=== PATIENT | male | born 1950 | race Caucasian/White ===

== ENCOUNTER → 2020-01-03 | Outpatient (CLI) | payer OTHER | LOC: LAB 14:24 | PROVIDERS: ATTEND Orthopaedic Surgery | DX: Z51.81 Encounter for therapeutic drug level monitoring (principal); Z79.01 Long term (current) use of anticoagulants; Z96.698 Presence of other orthopedic joint implants | CPT/HCPCS: 36415; 85610 ==

== ENCOUNTER → 2020-01-08 | Outpatient (CLI) | payer MEDICARE | LOC: LAB 14:03 | PROVIDERS: ATTEND Orthopaedic Surgery | DX: Z79.01 Long term (current) use of anticoagulants (principal) | CPT/HCPCS: 36415; 85610 ==

== ENCOUNTER → 2020-01-15 | Outpatient (CLI) | payer MEDICARE | LOC: LAB 13:56 | PROVIDERS: ATTEND Orthopaedic Surgery | DX: Z79.01 Long term (current) use of anticoagulants (principal) | CPT/HCPCS: 36415; 85610 ==

== ENCOUNTER → 2020-01-23 | Outpatient (CLI) | payer MEDICARE, OTHER ==
--- NOTE | 2020-01-23 14:47 | CARD ---
MR#: [id number] Date of Study: 01/23/2020 Ordering Physician: KELLI ROD, Referring Physician: KELLI ROD, Tech: Nori Mahmood APPROVED REPORT EXAM: Two-dimensional and M-mode echocardiogram with Doppler and color Doppler. Other Information Quality : AverageHR: 55bpm INDICATION Atrial Fibrillation 2D DIMENSIONS RVDd2.6 (2.9-3.5cm)Left Atrium(2D)2.9 (1.6-4.0cm) IVSd1.2 (0.7-1.1cm)Aortic Root(2D)3.3 (2.0-3.7cm) LVDd4.9 (3.9-5.9cm)LVOT Diameter2.1 (1.8-2.4cm) PWd1.1 (0.7-1.1cm)LVDs4.1 (2.5-4.0cm) FS (%) 16.3 %SV39.0 ml LVEF(%)34.2 (>50%) Aortic Valve AoV Peak Sg.114.0cm/sAoV VTI22.8cm AO Peak GR.5.2mmHgLVOT Peak Sg.93.9cm/s LVOT VTI 19.36cmAO Mean GR.3mmHg HENRI (VMAX)2.41cx8XDM (VTI)2.94cm2 Mitral Valve MV E Iwckyyfh38.0cm/sMV DECEL CKLK171nd MV A Wkiuykqw45.0cm/sE/A Ratio0.9 Pulmonary Valve PV Peak Exzzvjqi09.1cm/sPV Peak Grad.3mmHg Tricuspid Valve TR P. Xwecnsro478bo/sRAP UZZNWBMH5uuUp TR Peak Gr.00agYkQZVP08whGk Pulmonary Vein S1 Hdhlfmta59.8cm/sD2 Ojiqmlxa85.7cm/s LEFT VENTRICLE The left ventricle is normal size. There is mild to moderate concentric left ventricular hypertrophy. The left ventricular systolic function is normal. The ejection fraction is estimated at 55-60%. Ther e is normal LV segmental wall motion. Transmitral Doppler flow pattern is Grade I-abnormal relaxation pattern. RIGHT VENTRICLE The right ventricle is normal size. There is normal right ventricular wall thickness. The right ventr icular systolic function is normal. ATRIA The left atrium size is normal. The right atrium is borderline dilated. Interatrial septum not well v isualized. AORTIC VALVE The aortic valve is normal in structure and function. Doppler and Color Flow revealed no significant aortic regurgitation. There is no significant aortic valvular stenosis. Calculated aortic valve area is 2.9 cm2 with maximum pressure gradient of 5 mmHg and mean pressure gradient of 3 mmHg. MITRAL VALVE The mitral valve is normal in structure and function. There is no evidence of mitral valve prolapse. There is no mitral valve stenosis. Doppler and Color Flow revealed no mitral valve regurgitation note d. TRICUSPID VALVE The tricuspid valve is normal in structure and function. Doppler and Color Flow revealed trace tricus pid regurgitation with an estimated PAP of 28 mmHg. There is no tricuspid valve stenosis. PULMONIC VALVE The pulmonic valve is not well visualized. Doppler and Color Flow revealed trace pulmonic valvular re gurgitation. GREAT VESSELS The aortic root is normal in size. The ascending aorta is normal in size. The IVC is normal in size a nd collapses >50% with inspiration. PERICARDIAL EFFUSION There is no evidence of significant pericardial effusion. Critical Notification Critical Value: No <Conclusion> The left ventricular systolic function is normal. The ejection fraction is estimated at 55-60%. There is normal LV segmental wall motion. Transmitral Doppler flow pattern is Grade I-abnormal relaxation pattern. Trace tricuspid regurgitation with an estimated PAP of 28 mmHg. There is no evidence of significant pericardial effusion. Signed by : David Caban, Electronically Approved : 01/23/2020 14:46:28
== END ==
LOC: ECHO 10:47
PROVIDERS: ATTEND Internal Medicine Cardiovascular Disease
DX: I51.7 Cardiomegaly (principal); I48.0 Paroxysmal atrial fibrillation
CPT/HCPCS: 93306

== ENCOUNTER 2021-05-03 08:01 | Emergency (ER) | payer MEDICARE ==
[~2021-05-03] VITALS: Ht 180.3 cm; Wt 109.7 kg
[~2021-05-03 08:01] MED LIST: ASPI-630 PO; AZIT250T PO; CEFD300C PO; DEXA6TAB6 PO; DILT240C33 PO; DULO60CA7 PO; FOLI0.4T5 PO; GABA600T7 PO; METH2.5T PO; PANT40TA3 PO; PRED2.5T PO; TAMS0.4C97 PO; TOFA5TAB PO
--- NOTE | 2021-05-03 08:34 | PHYS DOC ---
Past History Past Surgical History: Knee Replacement Additional Past Surgical Histo: CARDIAC CATH, IRON PLUG IN HEART Alcohol Use: None General Adult EDM: Chief Complaint: GENERALIZED BODY ACHES HPI: HPI: Patient is a 70-year-old male dropped off by for multiple complaints. Patient is a poor historian but is complaining of pain all over and weakness. Patient states that the pain is chronic and took a hydrocodone this morning that has since "worn off". Patient states he chronically has low back pain and has been getting injections, missed his last one due to being hospitalized for Covid, and has another one scheduled in 1 week. Patient was in [place] yesterday and by himself in a hotel room. He states that he was unable to call the front office spec anyone to call 911 because he was unable to get out of bed. Patient states and himself flew back into town, and he just arrived this morning. Patient states he normally has low back pain but is now complaining of pain in his upper back and neck since yesterday. He says he saw his primary care provider 2 days ago and was told he to start physical therapy for his weakness that has had since his hospitalization. Patient states he has had occasional chills and nonproductive cough since his illness, also has mouth sores that started when he had COVID but they are getting better. Patient denies any fevers, nausea, vomiting, diarrhea, hematuria or dysuria. Patient denies any urinary retention. Per she apparently emergency department because is unable to ambulate. Says is gotten severely worse over the past couple days and seeing his primary care provider. States he is unable to get up to use the restroom or care for himself. She is also concerned that he has been exhibiting signs of depression for the past couple months. Review of Systems: Review of Systems: All other systems within normal limits except for as noted in the HPI Allergies: Allergies: Allergies Coded Allergies Type Severity Reaction Last Updated Verified ibuprofen Allergy Severe 05/03/21 Yes Physical Exam: PE: Constitutional: Well developed, well nourished, no acute distress, non-toxic appearance. [] HENT: Normocephalic, atraumatic, bilateral external ears normal, nose normal. [] Eyes: PERRLA, conjunctiva normal, no discharge. [] Neck: No rigidity, supple, no stridor. [] Cardiovascular: Regular rate and rhythm, brisk cap refill [] Lungs & Thorax: Non labored symmetric respirations, no tachypnea or respiratory distress [] Abdomen: Soft, nondistended. Skin: Warm, dry, no erythema, no rash. [] Back: Unremarkable Extremities: No deformities, range of motion grossly intact, no lower extremity edema [] Neurologic: Alert and oriented X 3, no focal deficits noted. [] Psychologic: Affect normal, judgement normal, mood normal. [] EKG: EKG: [] Sinus rhythm, heart rate 90 bpm, left axis deviation, normal intervals, no ectopy, no STEMI Radiology/Procedures: Radiology/Procedures: [][place] [address] IMAGING REPORT Signed PATIENT: GERA JANE ACCOUNT: [id number] : 1950 LOCATION: ER AGE: 70 SEX: M EXAM STATUS: REG ER ORD. PHYSICIAN: MARÍA AMBRIZ MD REASON: back pain OMNI 350 100CC PROCEDURE: CT ANGIO CHEST ABD PELVIS EXAMINATION: CTA CHEST_ABDOMEN_AND PELVIS CLINICAL HISTORY: Back pain. Chest/abdominal pain. History of recent bilateral pulmonary emboli. Technique: Spiral CT acquisition of the chest, abdomen, and pelvis following IV contrast with coronal and sagittal reformatted images also provided for review. 3D maximum intensity projection images also performed. CT Dose Reduction Employed: One or more of the following individualized dose reduction techniques were utilized for this examination: 1. Automated exposure control 2. Adjustment of the mA and/or kV according to patient size 3. Use of iterative reconstruction technique. COMPARISON: CTA chest 04/20/2021 FINDINGS: CHEST: Mild residual thrombus involving a proximal segmental branch of the left upper lobe pulmonary arterial system. No evidence of additional residual emboli. Mild scattered subsegmental atelectasis and/or scarring bilaterally. Small residual irregular opacities remain in the left lung base at site of previously reported nodules, much less pronounced compared to prior study. No pleural effusion. Central airways patent. Visualized thyroid gland within normal limits. No mediastinal, hilar, or axillary lymphadenopathy. Cardiac chambers normal in size. Postoperative changes near the interatrial septum. No pericardial effusion. Mild atherosclerotic ossification in the thoracic aorta without aneurysm or dissection. No coronary artery atherosclerotic calcifications are noted, although the study is not optimized for coronary assessment. No evidence of acute osseous abnormality. Multilevel degenerative changes in the thoracic spine. ABDOMEN/PELVIS: Diffuse hypoattenuation of the hepatic parenchyma, compatible with steatosis. Gallbladder, pancreas, spleen, and adrenal glands unremarkable. Several hypoenhancing lesions in the right kidney measuring up to 2.5 cm, incompletely evaluated but may represent cysts. Left kidney unremarkable. Mildly filled urinary bladder. Nonenlarged prostate. No bowel dilation or definite wall thickening. Appendix within normal limits. Moderate hiatal hernia. Mild arterial atherosclerotic calcification. No abdominal aortic aneurysm or dissection. The celiac artery, superior and inferior mesenteric arteries, and bilateral renal arteries patent with no evidence of high-grade stenosis. No evidence of acute osseous abnormality. Multilevel degenerative changes in the lumbar spine. IMPRESSION: CHEST: Mild residual pulmonary arterial thrombus in a proximal segmental branch of the left upper lobe. Resolving left basilar opacities with mild scattered subsegmental atelectasis and/or scarring bilaterally. ABDOMEN/PELVIS: No evidence of acute abdominopelvic abnormality. Multiple nonacute findings as described. Electronically signed by: Steve Fermin DO (05/03/2021 11:20 AM) [facility] DICTATED AND SIGNED BY: STEVE FERMIN DO DATE: 05/03/21 105 CC: EBEN PALOMO; MARÍA AMBRIZ MD ~MTH0 0 [place] [address] IMAGING REPORT Signed PATIENT: GERA JANE ACCOUNT: [id number] : 1950 LOCATION: ER AGE: 70 SEX: M EXAM STATUS: REG ER ORD. PHYSICIAN: MARÍA AMBRIZ MD REASON: back of head and neck pain PROCEDURE: CT HEAD AND CERVICAL SPINE WO EXAMINATION: CT HEAD AND C-SPINE WO CLINICAL HISTORY: Back of head and neck pain. TECHNIQUE: Serial axial images without IV contrast were obtained from the vertex to the foramen magnum. Artificial intelligence software analysis also performed utilizing [employer]. CT of the cervical spine without IV contrast. Spiral, high resolution axial images were obtained from the skull base to the cervicothoracic junction with sagittal and coronal planar reconstructions. CT Dose Reduction Employed: One or more of the following individualized dose reduction techniques were utilized for this examination: 1. Automated exposure control 2. Adjustment of the mA and/or kV according to patient size 3. Use of iterative reconstruction technique. COMPARISON: None FINDINGS: BRAIN: Acute Change: No evidence of an acute contusion or other acute parenchymal process. Hemorrhage: No evidence of acute intracranial hemorrhage. Mass Lesion/Mass Effect: No evidence of intracranial mass or extraaxial fluid collection. No significant mass effect. Chronic Change: Scattered patchy foci of hypoattenuation in the supratentorial white matter, nonspecific but likely represents mild microvascular ischemia. Atherosclerotic calcification of the intracranial portion of the bilateral internal carotid arteries. Parenchyma: Mild generalized volume loss. Ventricles: Ventricles within normal limits for age. Paranasal Sinuses and Skull Base: Visualized paranasal sinuses clear. No evidence of acute calvarial fracture. C-SPINE: Alignment: Normal anatomic alignment. Osseous Structures: No evidence of acute fracture. Remote ununited fracture in the distal left C3 inferior articular process. Mild posterior subluxation of C4 relative to C3 and C5, likely degenerative. Degenerative Changes: Multilevel degenerative disc disease and neural foraminal narrowing, greatest at C4-5. No evidence of high-grade osseous spinal stenosis. Multilevel facet arthropathy. Cervical Soft Tissues: No prevertebral soft tissue swelling. Vascular calcifications. IMPRESSION: BRAIN: No evidence of acute intracranial abnormality. C-SPINE: No evidence of acute osseous abnormality involving the cervical spine. Multilevel degenerative findings as described, greatest at C4-5. Electronically signed by: Steve Fermin DO (05/03/2021 10:54 AM) [facility] DI[facility]ATED AND SIGNED BY: STEVE FERMIN DO DATE: 05/03/21 1045 CC: EBEN PALOMO; MARÍA AMBRIZ MD ~MTH0 0 Heart Score: C/O Chest Pain: No Risk Factors: Risk Factors: DM, Current or recent (<one month) smoker, HTN, HLP, family history of CAD, obesity. Risk Scores: Score 0 - 3: 2.5% MACE over next 6 weeks - Discharge Home Score 4 - 6: 20.3% MACE over next 6 weeks - Admit for Clinical Observation Score 7 - 10: 72.7% MACE over next 6 weeks - Early Invasive Strategies Course & Med Decision Making: Course & Med Decision Making Pertinent Labs and Imaging studies reviewed. (See chart for details) Discussed with Dr. Sylvester, patient might get more services available at [place]. Will transfer to [place] for back pain management, physical therapy, and PAT evaluation for depression [] Nick Disclaimer: Nick Disclaimer: This electronic medical record was generated, in whole or in part, using a voice recognition dictation system. Departure Departure: Impression: Primary Impression: Weakness Additional Impression: Back pain Disposition: 02 SHORT TERM HOSPITAL Admitting Physician: Jermain Sylvester Condition: STABLE Referrals: EBEN PALOMO (PCP) MARÍA AMBRIZ MD May 03, 2021 08:34
[2021-05-03 09:05] LABS: BASO % 0 % (0-3); EOS # 0.1 x10^3/uL (0.0-0.7); EOS % 1 % (0-3); HEMATOCRIT 35.6 % (39.0-53.0); HEMOGLOBIN 11.8 g/dL (13.0-17.5); LYMPH # 0.3 x10^3/uL (1.0-4.8); LYMPH % 2 % (24-48); MEAN CORPUSCULAR HEMOGLOBIN 29 pg (25-35); MEAN CORPUSCULAR HGB CONC 33 g/dL (31-37); MEAN CORPUSCULAR VOLUME 89 fL (79-100); MONO # 0.8 x10^3/uL (0.0-1.1); MONO % 8 % (0-9); NEUT # 9.1 x10^3uL (1.8-7.7); NEUT % 89 % (31-73); PLATELET COUNT 334 x10^3/uL (140-400); RED BLOOD COUNT 4.03 x10^6/uL (4.30-5.70); RED CELL DISTRIBUTION WIDTH 21.6 % (11.5-14.5); WHITE BLOOD COUNT 10.3 x10^3/uL (4.0-11.0)
[2021-05-03 09:14] LABS: CREATININE 0.9 mg/dL (0.7-1.3); GFR 83.4; POTASSIUM 3.9 mmol/L (3.5-5.1)
[2021-05-03 09:26] LABS: ALBUMIN 2.4 g/dL (3.4-5.0); ALBUMIN/GLOBULIN RATIO 0.7 (1.0-1.7); MAGNESIUM 2.6 mg/dL (1.8-2.4); PHOSPHORUS 4.2 mg/dL (2.6-4.7); TOTAL BILIRUBIN 0.8 mg/dL (0.2-1.0); TOTAL PROTEIN 5.7 g/dL (6.4-8.2)
[2021-05-03] MEDS ORDERED: IOHEXOL 350 MG/ML 100 ML VIAL. IV ONE (10:00)
[2021-05-03 10:20] LABS: ANISOCYTOSIS SLIGHT
[2021-05-03 10:21] LABS: PLT ESTIMATE ADEQUATE (ADEQUATE)
--- NOTE | 2021-05-03 10:57 | RAD ---
EXAMINATION: CT HEAD AND C-SPINE WO CLINICAL HISTORY: Back of head and neck pain. TECHNIQUE: Serial axial images without IV contrast were obtained from the vertex to the foramen magnum. [employer] software analysis also performed utilizing [employer]. CT of the cervical spine without IV contrast. Spiral, high resolution axial images were obtained from the skull base to the cervicothoracic junction with sagittal and coronal planar reconstructions. CT Dose Reduction Employed: One or more of the following individualized dose reduction techniques wer e utilized for this examination: 1. Automated exposure control 2. Adjustment of the mA and/or kV ac cording to patient size 3. Use of iterative reconstruction technique. COMPARISON: None FINDINGS: BRAIN: Acute Change: No evidence of an acute contusion or other acute parenchymal process. Hemorrhage: No evidence of acute intracranial hemorrhage. Mass Lesion/Mass Effect: No evidence of intracranial mass or extraaxial fluid collection. No signific ant mass effect. Chronic Change: Scattered patchy foci of hypoattenuation in the supratentorial white matter, nonspeci fic but likely represents mild microvascular ischemia. Atherosclerotic calcification of the intracran ial portion of the bilateral internal carotid arteries. Parenchyma: Mild generalized volume loss. Ventricles: Ventricles within normal limits for age. Paranasal Sinuses and Skull Base: Visualized paranasal sinuses clear. No evidence of acute calvarial fracture. C-SPINE: Alignment: Normal anatomic alignment. Osseous Structures: No evidence of acute fracture. Remote ununited fracture in the distal left C3 inf erior articular process. Mild posterior subluxation of C4 relative to C3 and C5, likely degenerative. Degenerative Changes: Multilevel degenerative disc disease and neural foraminal narrowing, greatest a t C4-5. No evidence of high-grade osseous spinal stenosis. Multilevel facet arthropathy. Cervical Soft Tissues: No prevertebral soft tissue swelling. Vascular calcifications. IMPRESSION: BRAIN: No evidence of acute intracranial abnormality. C-SPINE: No evidence of acute osseous abnormality involving the cervical spine. Multilevel degenerative findings as described, greatest at C4-5. Electronically signed by: Steve Lawrence DO (05/03/2021 10:54 AM) [facility]
--- NOTE | 2021-05-03 11:22 | RAD ---
EXAMINATION: CTA CHEST_ABDOMEN_AND PELVIS CLINICAL HISTORY: Back pain. Chest/abdominal pain. History of recent bilateral pulmonary emboli. Technique: Spiral CT acquisition of the chest, abdomen, and pelvis following IV contrast with coronal and sagittal reformatted images also provided for review. 3D maximum intensity projection images als o performed. CT Dose Reduction Employed: One or more of the following individualized dose reduction techniques wer e utilized for this examination: 1. Automated exposure control 2. Adjustment of the mA and/or kV ac cording to patient size 3. Use of iterative reconstruction technique. COMPARISON: CTA chest 04/20/2021 FINDINGS: CHEST: Mild residual thrombus involving a proximal segmental branch of the left upper lobe pulmonary arteria l system. No evidence of additional residual emboli. Mild scattered subsegmental atelectasis and/or scarring bilaterally. Small residual irregular opaciti es remain in the left lung base at site of previously reported nodules, much less pronounced compared to prior study. No pleural effusion. Central airways patent. Visualized thyroid gland within normal limits. No mediastinal, hilar, or axillary lymphadenopathy. Cardiac chambers normal in size. Postoperative changes near the interatrial septum. No pericardial ef fusion. Mild atherosclerotic ossification in the thoracic aorta without aneurysm or dissection. No co ronary artery atherosclerotic calcifications are noted, although the study is not optimized for coron magda assessment. No evidence of acute osseous abnormality. Multilevel degenerative changes in the thoracic spine. ABDOMEN/PELVIS: Diffuse hypoattenuation of the hepatic parenchyma, compatible with steatosis. Gallbladder, pancreas, spleen, and adrenal glands unremarkable. Several hypoenhancing lesions in the right kidney measuring up to 2.5 cm, incompletely evaluated but may represent cysts. Left kidney unremarkable. Mildly filled urinary bladder. Nonenlarged prostate. No bowel dilation or definite wall thickening. Appendix within normal limits. Moderate hiatal hernia. Mild arterial atherosclerotic calcification. No abdominal aortic aneurysm or dissection. The celiac a rtery, superior and inferior mesenteric arteries, and bilateral renal arteries patent with no evidenc e of high-grade stenosis. No evidence of acute osseous abnormality. Multilevel degenerative changes in the lumbar spine. IMPRESSION: CHEST: Mild residual pulmonary arterial thrombus in a proximal segmental branch of the left upper lobe. Resolving left basilar opacities with mild scattered subsegmental atelectasis and/or scarring bilater ally. ABDOMEN/PELVIS: No evidence of acute abdominopelvic abnormality. Multiple nonacute findings as described. Electronically signed by: Steve Lawrence DO (05/03/2021 11:20 AM) [facility]
[2021-05-03 11:31] LABS: CLARITY,URINE CLEAR; COLOR,URINE YELLOW; GLUCOSE,URINE NEG (NEG)
[2021-05-03 11:32] LABS: BACTERIA,URINE 0 /HPF (0-FEW); HYALINE CASTS, URINE OCC /HPF; NITRITE,URINE NEG (NEG); UROBILINOGEN,URINE 0.2 mg/dL (0.2 mg/dL)
[2021-05-03 11:33] LABS: SQUAMOUS EPITHELIAL CELL,UR OCC /LPF
[2021-05-03 13:56] LABS: INFLUENZA A PATIENT NEGATIVE (NEGATIVE); INFLUENZA B PATIENT NEGATIVE (NEGATIVE)
[2021-05-03 14:22] VITALS: BP 159/75
--- NOTE | 2021-05-03 14:47 | EKG ---
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
--- NOTE | 2021-05-05 09:09 | RAD ---
CT thoracic spine with contrast. CT lumbar spine with contrast. PQRS statement: CT scans at this facility use dose reduction including either automated exposure cont rol, iterative reconstructions, and /or weight based radiation dosing via mA and kV modification when appropriate to reduce radiation dose to as low as reasonably achievable. HISTORY: Back pain. Contrast: 100 mL Omnipaque [address] thoracic spine findings: 12 rib-bearing thoracic vertebra. Thoracic vertebral body height and alig nment intact. Thoracic vertebral body height and alignment. No focal bone lesion. No fracture. No spo ndylolysis defect. There is marked intervertebral disc height loss of the mid to lower thoracic disc levels, which contributes to partial interbody osseous fusion at T5-T6, T6-T7 and T7-T8 with mild ant erior bridging disc osteophytes throughout the mid to lower thoracic spine. There is a small subcutan eous cyst of the left posterior chest wall. Hiatal hernia upper stomach. There are some scattered isaac undglass opacities and small areas of nodularity in both the upper and lower lobes as was described o n prior CT chest imaging. Lower cervical spine demonstrates disc ossified uncovertebral spurring with spinal canal and neural foraminal stenoses at C4-C5. There is some scattered posterior thoracic disc osteophytes, most notable at T9-T10 which contributes to mild to moderate spinal canal stenosis and severe right lateral recess stenosis, and at T10-T11 with lateral and posterior disc osteophyte contr ibuting to probable mild spinal canal stenosis and neural foraminal stenoses. Thoracic spine impression: 1. No acute osseous injury of the thoracic spine. Degenerative disc disease. See above. 2. Hiatal hernia present. 3. Scattered pulmonary groundglass opacities and centrilobular nodularity most likely represents infe ctious/inflammatory process. Consider follow-up CT chest imaging in [address] lumbar spine findings: Given the presence of 12 rib-bearing thoracic vertebra, and 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 Lumbar vertebral body height and alignment are intact. No fracture. No spo ndylolysis defect. No focal bone lesion. Calcified plaque and mild tortuosity aorta and iliac arterie s. Paraspinal tissues are unremarkable. Disc disease described below. L1-L2: Disc height loss and vacuum disc and disc bulge which likely contributes to mild spinal canal stenosis. L2-L3: Disc height loss and vacuum disc and disc osteophyte likely contributes to mild to moderate sp inal canal stenosis and neural foraminal stenoses. L3-L4: Disc height loss, posterior disc bulge and lateral disc osteophytes with mild to moderate spin al canal and neural foraminal stenoses. L4-L5: Posterior disc height loss, vacuum disc, posterior disc bulge and lateral disc osteophytes wit h moderate spinal canal and neural foraminal stenoses. L5-L6: Posterior disc height loss, disc bulge, lateral disc osteophytes and facet spurring with moder ate neural foraminal stenoses. Bony spinal canal grossly patent. L6-S1: Marked disc height loss, bulky lateral disc osteophyte and mild posterior disc bulge, facet sp urring, severe bilateral neural foraminal stenoses, bony spinal canal grossly patent Lumbar spine impression: 1. No acute osseous injury lumbar spine. 2. 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 3. Lumbar disc disease and facet arthrosis as described above. Electronically signed by: Derrick Pritchett MD (05/05/2021 9:07 AM) [facility]
== END 2021-05-03 15:08 | disposition short-term general hospital (02) ==
LOC: ER 08:01
DX: U07.1 COVID-19 (principal); R53.1 Weakness; M54.59 Other low back pain; G89.29 Other chronic pain; Z88.6 Allergy status to analgesic agent
CPT/HCPCS: 36415; 70450; 71275; 72125; 74174; 74175; 80053; 81001; 83735; 83880; 84100; 84484; 85025; 87428; 93005; 99285; C9803; Q9967; U0003